=== PATIENT | male | born 1995 | race Two or more races ===

== ENCOUNTER 2018-01-23 20:50 | Emergency (ER) | payer SELFPAY ==
[~2018-01-23] VITALS: Ht 170.2 cm; Wt 72.6 kg
[2018-01-23] MEDS ORDERED: NKM (21:14)
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
[2018-01-23] MEDS ORDERED: Norco 5mg/325mg tab ORAL ONE (21:45)
[2018-01-24 00:27] VITALS: BP 115/63
[2018-01-24] MEDS ORDERED: HYDROmorphone 1mg/ml Carpuject IVP ONE (00:30)
[2018-01-24 00:34] LABS: BASOPHILS % (AUTO) 0.9 % (0.0-2.0); EOSINOPHILS % (AUTO) 0.1 % (0.0-3.0); HEMATOCRIT 48.3 % (42.0-52.0); HEMOGLOBIN 17.5 G/DL (14.2-18.0); LYMPHOCYTES % (AUTO) 20.9 % (20.0-45.0); MEAN CORPUSCULAR VOLUME 96 FL (80-99); MONOCYTES % (AUTO) 9.9 % (1.0-10.0); NEUTROPHILS % (AUTO) 68.2 % (45.0-75.0); PLATELET COUNT 222 K/UL (150-450); RED BLOOD COUNT 5.02 M/UL (4.70-6.10); RED CELL DISTRIBUTION WIDTH 10.9 % (11.6-14.8); WHITE BLOOD COUNT 11.2 K/UL (4.8-10.8)
[2018-01-24 00:56] LABS: ANION GAP 7 mmol/L (5-15); BLOOD UREA NITROGEN 9 mg/dL (7-18); CALCIUM 9.4 MG/DL (8.5-10.1); CARBON DIOXIDE 31 MMOL/L (21-32); CHLORIDE 101 MMOL/L (98-107); CREATININE 0.9 MG/DL (0.55-1.30); POTASSIUM 3.6 MMOL/L (3.5-5.1); SODIUM 139 MMOL/L (136-145)
[2018-01-24 01:32] VITALS: BP 115/69
[2018-01-24 01:33] VITALS: BP 115/69
--- NOTE | 2018-01-24 09:20 | Diagnostic Imaging Report ---
Indication: Trauma Technique: Continuous helical CT scanning of the head was performed without intravenous contrast material. Axial and coronal 5 mm sections were generated. Radiation dose was minimized using automated exposure control Dose: Total Dose Length Product - DLP 1432.[address] Dose Index - CTDIvol(s) 70.38 mGy. Comparison: Findings: The ventricular system is normal in size and configuration. There is no shift of midline structures. No abnormal extra-axial fluid collections are noted. There is no evidence of intracerebral bleeding. No other abnormal high or low density areas are noted within the brain. There is considerable periorbital ecchymosis on the left. The calvarium is intact. The mastoids are clear. Impression: Normal CT scan of the head without contrast material. Left periorbital soft tissue swelling. This agrees with the preliminary interpretation provided overnight by [facility]. The CT scanner at [facility] is accredited by the [employer] and the scans are performed using protocols designed to limit radiation exposure to as low as reasonably achievable to attain images of sufficient resolution adequate for diagnostic evaluation.
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
== END 2018-01-24 01:33 | disposition short-term general hospital (02) ==
LOC: EMR 21:53
DX: S00.12XA Contusion of left eyelid and periocular area, initial encounter (principal); S02.82XA Fracture of other specified skull and facial bones, left side, initial encounter for closed fracture; Y08.89XA Assault by other specified means, initial encounter; Y92.9 Unspecified place or not applicable; H54.40 Blindness, one eye, unspecified eye
CPT/HCPCS: 36415; 70450; 70486; 80048; 85025; 85610; 85730; 96374; 96375; 99285; J1170; J2405